=== PATIENT | female | born 1990 ===

== ENCOUNTER 2020-03-24 09:52 | Outpatient (REF) | payer OTHER, SELFPAY | END 2020-03-24 09:53 | disposition home or self-care (01) | LOC: HO.LAB 09:52 | PROVIDERS: Visit Provider Internal Medicine | DX: Z20.828 Contact with and (suspected) exposure to other viral communicable diseases (principal) | CPT/HCPCS: C9803; U0003 ==

== ENCOUNTER 2020-04-24 15:01 | Outpatient (REF) | payer OTHER, SELFPAY ==
[2020-04-25 11:57] LABS: BV Int Neg Control Negative (Negative); BV Int Pos Control Positive (Positive)
[2020-04-26 19:22] LABS: C. trachomatis RNA TMA NOT DETECTED (NOT DETECTED); N. gonorrhoeae RNA TMA NOT DETECTED (NOT DETECTED)
== END 2020-04-24 15:02 | disposition home or self-care (01) ==
LOC: HO.LAB 15:01
PROVIDERS: PCP Internal Medicine; Visit Provider Advanced Practice Midwife
DX: Z01.419 Encounter for gynecological examination (general) (routine) without abnormal findings (principal); L30.9 Dermatitis, unspecified; Z20.2 Contact with and (suspected) exposure to infections with a predominantly sexual mode of transmission
CPT/HCPCS: 87210; 87480; 87491; 87510; 87591; 87660; 88142

== ENCOUNTER 2020-07-19 13:22 | Outpatient (REF) | payer OTHER, SELFPAY ==
[2020-07-19 15:35] LABS: SARS COV2 PCR INHOUSE NEGATIVE (Negative)
== END 2020-07-19 13:23 | disposition home or self-care (01) ==
LOC: HO.LAB 13:22
PROVIDERS: Visit Provider Internal Medicine
DX: Z20.822 Contact with and (suspected) exposure to COVID-19 (principal)
CPT/HCPCS: C9803; U0003

== ENCOUNTER 2020-11-20 13:48 | Outpatient (REF) | payer OTHER, SELFPAY ==
--- NOTE | ~2020-11-20 | XR_ITS ---
EXAMINATION: XR SACRUM AND COCCYX CLINICAL INFORMATION: M53.3 - Sacrococcygeal disorders, not elsewhere classified COMPARISON: CT abdomen and pelvis 02/04/2018 TECHNIQUE: The sacrum and coccyx are imaged in 3 views, 2 frontal and a lateral. FINDINGS: The sacrum and coccyx are unremarkable. There is no fracture or destructive process. No visible presacral tibial soft tissue swelling. The SI joints show no erosive changes or subchondral sclerosis or ankylosis. There is prominent osteitis pubis also noted on the CT pelvis from 2018. XR/XR sacrum coccyx min 2V IMPRESSION: 1. Unremarkable sacrum and coccyx. 2. 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
== END 2020-11-20 13:49 | disposition home or self-care (01) ==
LOC: HO.HMGCX 13:48
PROVIDERS: PCP Internal Medicine; Visit Provider Hospitalist
DX: M53.3 Sacrococcygeal disorders, not elsewhere classified (principal)
CPT/HCPCS: 72220

== ENCOUNTER 2021-06-20 15:00 | Outpatient (REF) | payer OTHER, SELFPAY ==
[2021-06-21 04:54] LABS: CT PCR NOT DETECTED (Not Detect.); NG PCR NOT DETECTED (Not Detect.)
[2021-06-21 13:36] LABS: BV Int Neg Control Negative (Negative); BV Int Pos Control Positive (Positive)
== END 2021-06-20 15:01 | disposition home or self-care (01) ==
LOC: HO.LAB 15:00
PROVIDERS: Visit Provider Advanced Practice Midwife
DX: Z01.411 Encounter for gynecological examination (general) (routine) with abnormal findings (principal); A60.00 Herpesviral infection of urogenital system, unspecified; Z20.2 Contact with and (suspected) exposure to infections with a predominantly sexual mode of transmission; N89.8 Other specified noninflammatory disorders of vagina
CPT/HCPCS: 87071; 87077; 87186; 87205; 87255; 87480; 87491; 87510; 87591; 87660

== ENCOUNTER 2021-06-21 14:54 | Outpatient (REF) | payer OTHER, SELFPAY ==
[2021-06-21 15:08] LABS: MANUAL DIFF FLAG NO
[2021-06-21 15:38] LABS: Basophils Percent Auto 0.4 % (0-2); Eosinophils Absolute Auto 0.2 X10*3/uL (0.0-0.4); Eosinophils Percent Auto 1.8 % (0-4); Hematocrit 37.5 % (37.0-47.0); Hemoglobin 12.8 g/dl (12.0-16.0); Imm Gran Abs Auto 0.02 X10*3/uL (0.00-0.03); Imm Gran Pct Auto 0.2 % (0.0-0.4); Lymphocytes Absolute Auto 2.9 X10*3/uL (1.2-4.9); Lymphocytes Percent Auto 34.9 % (20-40); Mean Corpuscular HGB Conc 34.1 g/dl (31.0-35.0); Mean Corpuscular Hemoglobin 28.5 pg (27.0-33.0); Mean Corpuscular Volume 83.5 fL (80.0-98.0); Mean Platelet Volume 10.1 fL (9.4-12.3); Monocytes Absolute Auto 0.5 X10*3/uL (0.1-1.2); Monocytes Percent Auto 6.2 % (2-11); Neutrophils Absolute Auto 4.6 x10*3/uL (2.0-8.3); Neutrophils Percent Auto 56.5 % (45-73); Platelet Count 377 X10*3/uL (160-400); Red Blood Count 4.49 X10*6/uL (4.20-5.50); Red Cell Distribution Width 14.2 % (11.0-16.0); White Blood Count 8.2 X10*3/uL (4.8-10.8)
[2021-06-21 16:30] LABS: TSH reflex Free T4 0.99 uIU/mL (0.32-4.0)
[2021-06-22 07:46] LABS: ~HepC Num1 0.09 S/CO (0.00-0.79); ~Hepatitis C Antibody Nonreactive (Nonreactive)
[2021-06-22 07:53] LABS: HBsAGNum1 0.22 S/CO (0.00-0.99); HIV AB/AG Nonreactive (Nonreactive); HIV Num 1 0.06 S/CO (0.00-0.99); Hepatitis B Surface Antigen Negative (Negative)
[2021-06-22 08:43] LABS: Syphilis Screen Nonreactive (Nonreactive)
== END 2021-06-21 14:55 | disposition home or self-care (01) ==
LOC: HO.LAB 14:54
PROVIDERS: PCP Internal Medicine; Visit Provider Advanced Practice Midwife
DX: E66.9 Obesity, unspecified (principal); A60.00 Herpesviral infection of urogenital system, unspecified; N89.8 Other specified noninflammatory disorders of vagina
CPT/HCPCS: 36415; 84443; 85025; 86780; 86803; 87340; 87389

== ENCOUNTER → 2021-07-04 14:28 | Outpatient (BNVA) | payer OTHER, SELFPAY | PROVIDERS: PCP Internal Medicine; Visit Provider Advanced Practice Midwife | DX: A60.00 Herpesviral infection of urogenital system, unspecified (principal) | CPT/HCPCS: 99212 ==

== ENCOUNTER 2023-08-18 16:34 | Outpatient (AMB) | payer OTHER, SELFPAY ==
[2023-08-18 16:36] VITALS: BP 120/80; BMI 37.6
--- NOTE | 2023-08-18 16:36 | A.OFFPC_ITS ---
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 Operator Required: No Accompanied by: Child Allergies costello Allergy (Severe, Verified 08/18/23 16:49) SWELLING amoxicillin [AMOXICILLIN] Allergy (Intermediate, Verified 08/18/23 16:49) STOMACH UPSET cephalexin Allergy (Unknown, Verified 08/18/23 16:49) vomiting cefprozil [From CEFZIL] Adverse Reaction (Intermediate, Verified 08/18/23 16:49) VOMITING Medication List - Last Reconciled 08/18/23 by Carmen Odonnell MD No Known Home Meds Tobacco use date assessed: 08/18/23 Dental Screening Dental Screen Date: 08/18/23 Did you have a dental visit in the last 12 months?: No Did you have a dental problem in the last 6 months where you did not have access to dental care?: No Was dental information given to patient?: Patient has dentist HPI HPI Comments History of Present Illness Details This is a 32-year-old female that comes for her physical exam. She denies any chest pain or shortness of breath. Last Pap smear was 2020 and will be referred to OBGYN for this matter. No change in bowel or bladder habits. 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 [facility] Medical History (Updated 08/13/21 @ 17:39 by Carmen Odonnell MD) Chest pain Physical exam Obese Normal Pap smear Surgical History S/P tonsillectomy Tubal ligation status Family History (Updated 08/18/23 @ 16:54 by Carmen Odonnell MD) Maternal Grandmother HTN (hypertension), malignant Diabetes Hyperlipidemia type II Father HTN (hypertension) Mother Bipolar disorder Social History Housing: Apartment Alcohol intake: current Alcohol intake frequency: holidays/special occasions only Alcohol type: wine Patient Tobacco Use Status: Never used Tobacco e-Cigarette/Vaping Use: Never Used Second Hand Smoke Exposure: No service: No Current occupational status: employed Current occupational exposures/hazards: No Gender identity: Female Cognitive needs: No Hearing needs: No Vision needs: No Female Reproductive History Menstrual Age of Menarche: 10 Questionnaire PHQ-9 Over the last 2 weeks, how often have you been bothered by any of the following problems? 1. Little interest or pleasure in doing things: not at all 2. Feeling down, depressed, or hopeless: not at all 3. Trouble falling or staying asleep, or sleeping too much: not at all 4. Feeling tired or having little energy: not at all 5. Poor appetite or overeating: not at all 6. Feeling bad about yourself - or that you are a failure or have let yourself or your family down: not at all 7. Trouble concentrating on things, such as reading the newspaper or watching television: not at all 8. Moving or speaking so slowly that other people could have noticed. Or the opposite - being so fidgety or restless that you have been moving around a lot more than usual: not at all 9. Thoughts that you would be better off or of hurting yourself in some way: not at all Total score: 0 Depression Screening Interpretation: Negative Depression Screening Done: Yes 19533 - PHQ-9 Billing: Yes Source: Developed by Drs. Edwin Augustin, Ewelina Florez, Caio Issa and colleagues, with an educational ross from [employer]. Thrive Questionnaire Date Thrive assessed: 08/18/23 I am a: Patient What is your living situation today?: I have a steady place to live Within the past 12 months, did the food you bought not last and you didn't have the money to get more?: Never true Within the past 12 months, did you worry whether your food would run out before you got money to buy more?: Never true Do you have trouble paying for medicines?: No Do you have trouble getting transportation to medical appointments?: No Do you have trouble paying your heating and electricity bill?: No Do you have trouble taking care of your child, family member or friend?: No Do you have trouble with day-to-day activities such as bathing, preparing meals, shopping, managing finances, etc.?: No Are you currently unemployed and looking for a job?: No Are you interested in more education?: No Please select the resources that you would like help with: None Currently or been in a relationship where the following occur: no concerns reported THRIVE Score: 0 AUDIT C Alcohol Use Questionnaire (AUDIT-C) 1. How often do you have a drink containing alcohol?: Monthly or less 2. How many drinks containing alcohol do you have on a typical day when you are drinking?: 1 or 2 3. How often do you have six or more drinks on one occasion?: Never Total Score: 1 Score Reviewed/Action Taken: No SRIDHAR-7 AMB Questionnaire SRIDHAR-7 Date SRIDHAR - 7 assessed: 08/18/23 Feeling nervous, anxious, or on edge: 0 = Not at all Not being able to stop or control worryin = Not at all Worrying too much about different things: 0 = Not at all Trouble relaxin = Not at all Being so restless that it is hard to sit still: 0 = Not at all Becoming easily annoyed or irritable: 0 = Not at all Feeling afraid as if something awful might happen: 0 = Not at all Total SRIDHAR-7 score (0-4 normal; 5-9 mild; 10-14 moderate; 15-21 severe): 0 Source: Developed by Drs. Edwin Augustin, Ewelina Florez, Caio Issa and colleagues, with an educational ross from [employer]. SRIDHAR-7 Assessment Billing SRIDHAR-7 Assessment Tool: SRIDHAR-7 Assessment 56964 Review of Systems Const All systems reviewed & are unremarkable except as noted in HPI and below Eyes Reports no additional complaints, Denies change in vision and Denies other visual disturbances Card Denies chest pain at rest, Denies chest pain with activity, Denies edema, Denies irregular heart rhythm, Denies claudication, Denies dyspnea, Denies dyspnea on exertion, Denies orthopnea, Denies paroxysmal nocturnal dyspnea and Denies slow heart rate Resp Denies cough, Denies dyspnea and Denies dyspnea on exertion GI Denies abdominal pain, Denies change in bowel habits, Denies excessive flatus, Denies nausea and Denies vomiting Denies urinary incontinence, Denies urinary hesitancy and Denies urinary urgency Musc Denies atrophy, Denies deformity and Denies limited range of motion Physical exam (Primary Care) Vital Signs: Last Vital Signs BP 120/80 08/18/23 16:36 BMI result Body Mass Index 37.6 BMI Assessment/Plan discussion: High BMI High, discussed plan: lifestyle, weight reduction, dietary and physical activity Tobacco/Smoking Status: Tobacco use Status Tobacco use date assessed 08/18/23 08/18/23 16:40 Patient Tobacco Use Status Never used Tobacco 08/18/23 16:40 Tobacco use type 08/15/22 17:35 e-Cigarette/Vaping Use Never Used 08/18/23 16:40 PHQ-9: PHQ-9 Score PHQ-9: Total score 0 08/18/23 16:40 Depression Screening Interpretation: Negative Thrive Assessment: Date of Thrive Assessment Date Thrive assessed 08/18/23 08/18/23 16:40 Currently or been in a relationship where the following occur: no concerns reported Const Orientation/consciousness: patient oriented x3 HENMT Head: Yes normal to inspection, Yes normocephalic and Yes atraumatic Ears: external ears normal Eyes General: appearance normal, both eyes and all related structures Eyelids: Yes eyelids normal Conjunctivae: conjunctivae normal Neck Neck: Yes normal visual inspection and Yes supple Resp Effort & Inspection: normal respiratory effort Auscultation: clear to auscultation bilaterally Cardio Jugular venous distension: no JVD Rate: regular rate Rhythm: regular rhythm Heart sounds: S1 normal heart sound present and S2 normal heart sound present GI Inspection: Yes normal to inspection Palpation (GI): Soft to palpation and nontender Auscultation: normal bowel sounds Skin General skin exam: no rashes or lesions noted Neuro General: patient oriented x3 and no focal motor deficits Extrem General: Yes full ROM Psych Appearance: grossly normal Assessment and Plan Assessment & Plan (1) Physical exam: Code(s): Z00.00 - Encounter for general adult medical examination without abnormal findings Plan: Repeat in a year. Orders: Orders Comprehensive Alvo. Panel Fast Today Z00.00 - Encounter for general adult medical examination without abnormal findings Lipid Panel Today Z00.00 - Encounter for general adult medical examination without abnormal findings Coding Level of Care Code Est Pt Prev Care 18-39y(35790) Diagnoses Physical exam Z00.00 Additional Codes SRIDHAR-7 Assessment Billing - SRIDHAR-7 Assessment Tool: SRIDHAR-7 Assessment 99079 ([id number]) Time Spent (min) 30
== END 2023-08-18 17:01 | disposition home or self-care (01) ==
PROVIDERS: Visit Provider Internal Medicine
DX: Z00.00 Encounter for general adult medical examination without abnormal findings (principal); E66.9 Obesity, unspecified; Z68.37 Body mass index [BMI] 37.0-37.9, adult
CPT/HCPCS: 99395

== ENCOUNTER 2023-09-04 09:39 | Outpatient (REF) | payer OTHER, SELFPAY ==
[2023-09-05 09:34] LABS: Bacterial Vaginosis PCR POSITIVE (Negative); Candida Group PCR NOT DETECTED (Not Detect); Candida glab krusei PCR NOT DETECTED (Not Detect); Trichomonas vaginalis PCR NOT DETECTED (Not Detect)
[2023-09-05 09:47] LABS: CT PCR NOT DETECTED (Not Detect.); NG PCR NOT DETECTED (Not Detect.)
[2023-09-12 20:44] LABS: HPV 16 RNA NOT DETECTED (NOT DETECTED); HPV mRNA E6/E7 rflx Detected (Not Detected)
== END 2023-09-04 09:40 | disposition home or self-care (01) ==
LOC: HO.LAB 09:39
PROVIDERS: PCP Internal Medicine; Visit Provider Advanced Practice Midwife
DX: Z01.419 Encounter for gynecological examination (general) (routine) without abnormal findings (principal); N92.0 Excessive and frequent menstruation with regular cycle
CPT/HCPCS: 0352U; 0353U; 87624; 87625; 88142; 99395

== ENCOUNTER 2023-09-04 09:39 | Outpatient (AMB) | payer OTHER, SELFPAY ==
--- NOTE | 2023-09-04 09:53 | A.OFFVIS_ITS ---
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: No Information Interpreted: clinical only Framing Specialist: Framing Specialist Present Allergies costello Allergy (Severe, Verified 09/04/23 09:54) SWELLING amoxicillin [AMOXICILLIN] Allergy (Intermediate, Verified 09/04/23 09:54) STOMACH UPSET cephalexin Allergy (Unknown, Verified 09/04/23 09:54) vomiting cefprozil [From CEFZIL] Adverse Reaction (Intermediate, Verified 09/04/23 09:54) VOMITING Medication List - Last Reconciled 09/04/23 by Homa Mcgovern CNM omeprazole 20 mg PO DAILY Is last menstrual period known: Yes Last menstrual period: 08/09/23 Do you need a note to return to daycare/school/sports/work: No HPI HPI 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 She has not having any other symptoms she says is possible she is gained weight she says her weight is always up and down. 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 She has not had any outbreaks in the last year of her piece she does not need anymore medication for she has no particular worries about STDs but is open to testing with Pap smear. She had a ParaGard IUD in the past and got with the and then she a Mirena after that and he did how she felt on it with the hormones and then she had her tubes tied. She would never want a Mirena again. [facility] Medical History Chest pain Physical exam Obese Normal Pap smear Surgical History S/P tonsillectomy Tubal ligation status Family History Maternal Grandmother HTN (hypertension), malignant Diabetes Hyperlipidemia type II Father HTN (hypertension) Mother Bipolar disorder Social History (Reviewed 09/04/23 @ 09:55 by Guy Nolasco [facility] Housing: Apartment Alcohol intake: current Alcohol intake frequency: holidays/special occasions only Alcohol type: wine Patient Tobacco Use Status: Never used Tobacco e-Cigarette/Vaping Use: Never Used Second Hand Smoke Exposure: No service: No Current occupational status: employed Current occupational exposures/hazards: No Gender identity: Female Cognitive needs: No Hearing needs: No Vision needs: No Female Reproductive History Menstrual Age of Menarche: 10 Duration of menses: 3-5 days Date of last menstrual period: 08/09/23 control method: permanent sterilization Total pregnancies: 3 Full term: 3 Date of last pap smear: 04/26/20 (negative,previous pap,2017 wnl) History of abnormal pap smear: No Physical Exam Vital Signs: Last Vital Signs BP 118/76 09/04/23 09:54 BMI result Body Mass Index 37.8 Const General: healthy appearing, comfortable, no acute distress, well developed and alert Nutritional Appearance: average body habitus Orientation/consciousness: patient oriented x3 Limitations: no limitations HEENT Head: Yes normocephalic Neck Other: Very subtle thickness at sides of neck probably adipose no goiter palpable. Neck: Yes normal visual inspection Thyroid: Thyroid normal Chest Chest palpation & inspection: normal inspection of the chest Breast/axilla inspection: normal inspection of the breasts and normal inspection of the axillae Breast/axilla palpation: normal palpation of the breasts and normal palpation of the axillae Resp Effort & Inspection: normal respiratory effort GI Inspection: Yes normal to inspection, No Abdominal wall edema and No distended Palpation (GI): Soft to palpation and nontender Other: External exam within normal limits no lesions at all vagina pink and moist cervix pink nulliparous moist mobile nontender re-treated from view during speculum exam but Pap smear was able to be obtained tiny amount bloody mucus at os consistent with pending start of menses. Uterus does not feel enlarged midposition mobile nontender good tone with Kegel. General: Yes bladder normal to palpation External Female Exam: normal external appearance and normal appearance of the urethra Speculum Exam - Vagina: normal appearance of the vagina, normal palpation and normal vaginal discharge Speculum Exam - Cervix: normal appearance of the cervix, normal palpation and nontender Bimanual exam- vagina & uterus: normal bimanual exam, normal palpation, uterine size normal, bladder normal to palpation, consistency normal, normal palpation, uterine mobility normal, uterine shape normal, No Cervical tenderness present, non-tender and no cervical motion tenderness Bimanual Exam- Adnexa, other: normal adnexae, no masses, normal and No adnexal tenderness Neuro General: patient oriented x3 Results Reviewed Results Reviewed: Name: Radha Dominguez Age/Sex: 29/F Attending: Homa Mcgovern CNM : 1990 Submitted by: Homa Mcgovern CNM Copies to: MR #: [id number] Status: DEP REF Collected: 04/24/20 Location: .LAB Received: 04/26/20 Interpretation Satisfactory for evaluation. No endocervical cells seen. Mild inflammation. Fungal organisms consistent with Archana species. Negative for intraepithelial lesion or malignancy. Clinical Information LMP: 04/04/20 Previous PAP test: 2017, wnl Material Received ThinPrep cervical Electronically Signed By: MARTINA Garnica (ASCP) 05/09/20 8055 The Pap Test is a screening procedure with the inherent possibility of both false negative and false positive results. Results should be interpreted in the context of historic and current clinical findings. Reliability of the Pap Test is enhanced by performing the test on a regular repetitive basis. Patient: Radha Dominguez Age/Sex: 29/F MR#: [id number] Page 1 of 1 Name: Radha Dominguez Age/Sex: 30/F : 1990 Unit#: [id number] Attend Dr: Homa Mcgovern CNM Re06/20/21 Status: DEP REF Location: [facility] Disch: SPEC : [id number] HARDY: 06/20/21-UNK STATUS: COMP REQ : [id number] RECD: 06/20/21-[address]: Homa Mcgovern COMP: 06/23/21-1408 ENTERED: 06/20/21-[address]: Physician,None ORDERED: Herpes Vir Cult Test Result Flag Reference Herpes Vir Cult SEE NOTE A HERPES SIMPLEX VIRUS CULTURE Micro Number: [id number] Test Status: Final Specimen Source: Not given Specimen Quality: Adequate HSV Culture: Isolated THIS TEST WAS PERFORMED AT: [facility] [address] [address] SADE WEINBERG MD Assessment & Plan Assessment & Plan (1) Well woman exam with routine gynecological exam: Code(s): Z01.419 - Encounter for gynecological examination (general) (routine) without abnormal findings Category: Medical (2) Screening for cervical cancer: Code(s): Z12.4 - Encounter for screening for malignant neoplasm of cervix Category: Medical (3) Menorrhagia with regular cycle: Code(s): N92.0 - Excessive and frequent menstruation with regular cycle Category: Medical Plan -----Discussed in this visit the following: healthy balanced diet, regular and consistent exercise, getting recommended health screens, doing the best she can for her particular health concerns, kegel exercises, pap smear screening and followup recommendations, mammography screening and SBE, normal changes in cycles in her life stage--- . Reviewed her heavy cycles reviewed usual treatments that might be considered she did not like how she felt on hormones and especially the IUD discussed the possibility of checking for fibroids or any other cause via an ultrasound. She decided for now we will start with CBC and I am also adding the TSH close her visually her neck appeared thickened though her thyroid itself does not feel enlarged. She is going to be getting her fasting labs for her primary care provider so she can get them all done together. If it turns out that she is anemic she will be offered iron further discussion will take place did tell her about Mirena IUD is often being a recommendation and the surgical interventions like her mother's would need to be discussed with physician Orders: Orders Complete Blood Count no Diff Today N92.0 - Excessive and frequent menstruation with regular cycle, Z01.419 - Encounter for gynecological examination (general) (routine) without abnormal findings, Z12.4 - Encounter for screening for malignant neoplasm of cervix Thyroid Stimulating Hormone Today N92.0 - Excessive and frequent menstruation with regular cycle, Z01.419 - Encounter for gynecological examination (general) (routine) without abnormal findings, Z12.4 - Encounter for screening for malignant neoplasm of cervix Coding Level of Care Code Est Pt Prev Care 18-39y(92224) Diagnoses Well woman exam with routine gynecological exam Z01.419 Screening for cervical cancer Z12.4 Menorrhagia with regular cycle N92.0
[2023-09-04 09:54] VITALS: BP 118/76; BMI 37.8
== END 2023-09-04 10:25 | disposition home or self-care (01) ==
LOC: HO.HWSM 09:39
PROVIDERS: PCP Internal Medicine; Visit Provider Advanced Practice Midwife
DX: Z01.419 Encounter for gynecological examination (general) (routine) without abnormal findings (principal); Z12.4 Encounter for screening for malignant neoplasm of cervix; N92.0 Excessive and frequent menstruation with regular cycle
CPT/HCPCS: 99395

== ENCOUNTER 2023-10-30 15:46 | Outpatient (REF) | payer OTHER, SELFPAY | END 2023-10-30 15:47 | disposition home or self-care (01) | LOC: HO.LNP 15:46 | PROVIDERS: PCP Internal Medicine; Visit Provider Obstetrics & Gynecology | DX: R87.612 Low grade squamous intraepithelial lesion on cytologic smear of cervix (LGSIL) (principal) | CPT/HCPCS: 57454; 81025; 88305 ==

== ENCOUNTER 2023-10-30 15:46 | Outpatient (AMB) | payer OTHER, SELFPAY ==
[2023-10-30 15:49] VITALS: BMI 37.4
--- NOTE | 2023-10-30 15:49 | MHC.OFFVIS ---
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 Operator Required: No Information Interpreted: non-clinical & clinical Occupational Health Professional: Occupational Health Professional Present (Maria A ALLEN) Accompanied by: Self / Same As Patient Allergies costello Allergy (Severe, Verified 10/30/23 15:55) SWELLING amoxicillin [AMOXICILLIN] Allergy (Intermediate, Verified 10/30/23 15:55) STOMACH UPSET cephalexin Allergy (Unknown, Verified 10/30/23 15:55) vomiting cefprozil [From CEFZIL] Adverse Reaction (Intermediate, Verified 10/30/23 15:55) VOMITING Is last menstrual period known: Yes Last menstrual period: 10/09/23 HPI Comments Details: Here for colposcopy for Pap smear showing LGSIL/HPV E6 E7 positive, HPV 16/18/45 negative PFSH Medical History Chest pain Physical exam Obese Normal Pap smear Surgical History S/P tonsillectomy Tubal ligation status Family History Maternal Grandmother HTN (hypertension), malignant Diabetes Hyperlipidemia type II Father HTN (hypertension) Mother Bipolar disorder Social History Housing: Apartment Alcohol intake: current Alcohol intake frequency: holidays/special occasions only Alcohol type: wine Patient Tobacco Use Status: Never used Tobacco e-Cigarette/Vaping Use: Never Used Second Hand Smoke Exposure: No service: No Current occupational status: employed Current occupational exposures/hazards: No Gender identity: Female Cognitive needs: No Hearing needs: No Vision needs: No Female Reproductive History Menstrual Age of Menarche: 10 Date of last menstrual period: 10/09/23 control method: permanent sterilization Review of Systems Const All systems reviewed & are unremarkable except as noted in HPI and below Reports as per HPI and Reports no additional complaints GI Reports no additional complaints Reports no additional complaints Physical Exam Vital Signs: BMI result Body Mass Index 37.4 Office Procedures Colposcopy Colposcopy: Pre-Procedure Counseling: Before beginning the procedure, I conducted comprehensive counseling with the patient. We thoroughly discussed the procedure itself, including its details, alternatives, and all associated risks. This included but not limited to the following complications such as bleeding, infection, and injury to the vagina, bladder, and vessels, as well as the potential need for transfusion with all its associated risks. Subsequently, the patient sign the consent. Pap smear result: LSIL/HPV E6/E7 positive, HPV 16/18/45 negative. Procedure: During the procedure, the following steps were performed: A speculum was inserted, and acetic acid was applied. Colposcopy was conducted, allowing visualization of the transformation zone. Acetowhite lesions were identified at the 5+7+11+1+3 o'clock position. Cervical biopsies were obtained from the 5+7+11+1 o'clock position, followed by an endocervical curettage (ECC). Vaginoscopy of the upper vagina revealed no evidence of aceto-white lesions. Hemostasis was achieved using Monsel solution, and the patient tolerated the procedure well. Post-Procedure Instructions: The patient was advised to promptly contact the office or the after hours answering service or go to the emergency room if experiencing a temperature exceeding 100.4?F, abdominal pain, nausea/vomiting, or bleeding. Additionally, the patient was instructed to abstain from vaginal intercourse and bathtub use. The patient confirmed understanding of these instructions. Discharge Instructions: The patient was instructed to schedule a follow-up appointment in 2 weeks for further evaluation and management. Please note that this note was generated using a voice recognition program, and errors may have occurred during environmental services coordinator. 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 the false positive/negative rate of a Pap smear as a screening test in detecting cervical cancer and the indication for a diagnostic test -colposcopy, biopsy, endocervical curettage. The patient verbalized understanding and agreed with the plan, all questions answered. Colposcopy/biopsy/ECC done, see procedure note Orders: Orders AMB HCG Urine Test Today Z32.02 - Encounter for test, result negative AMB Colposcopy Today R87.612 - Low grade squamous intraepithelial lesion on cytologic smear of cervix (LGSIL) Coding Level of Care Code Procedure Only Diagnoses LGSIL on Pap smear of cervix R87.612 CPT Codes Colposcopy - CPT: 39980-Gnltdqvnw of cervix including upper vagina with biopsy and ECC ([id number])
== END 2023-10-30 16:14 | disposition home or self-care (01) ==
LOC: HO.HWS 15:46
PROVIDERS: PCP Internal Medicine; Visit Provider Obstetrics & Gynecology
DX: R87.612 Low grade squamous intraepithelial lesion on cytologic smear of cervix (LGSIL) (principal); Z32.02 Encounter for pregnancy test, result negative
CPT/HCPCS: 57454

== ENCOUNTER 2023-11-13 09:43 | Outpatient (AMB) | payer OTHER, SELFPAY ==
--- NOTE | 2023-11-13 09:45 | MHC.OFFVIS ---
Vital Signs 11/13/23 09:46 Height 5 ft 5 in Weight 224 lb 13.944 oz BMI 37.4 Intake Visit Reasons: colpo results Clinical Documentation Specialist Required: No Information Interpreted: non-clinical & clinical Accompanied by: Self / Same As Patient Allergies costello Allergy (Severe, Verified 11/13/23 09:46) SWELLING amoxicillin [AMOXICILLIN] Allergy (Intermediate, Verified 11/13/23 09:46) STOMACH UPSET cephalexin Allergy (Unknown, Verified 11/13/23 09:46) vomiting cefprozil [From CEFZIL] Adverse Reaction (Intermediate, Verified 11/13/23 09:46) VOMITING Is last menstrual period known: Yes Last menstrual period: 11/10/23 HPI Comments Details: Presenting post colpo for follow-up. The patient is doing well with no complaints. The pathology showed the following: A. Endocervix, curettage: Endocervical glandular mucosa and rare atypical squamous epithelial cells. B. Cervix, 1:00, biopsy: Low-grade squamous intraepithelial lesion (mild dysplasia, EDGAR 1); endocervical glandular mucosa present. C. Cervix, 3:00, biopsy: Squamous and endocervical glandular mucosa with inflammation and reactive changes; negative for dysplasia. D. Cervix, 5:00, biopsy: Squamous mucosa; negative for dysplasia; no endocervical glandular mucosa present. E. Cervix, 7:00, biopsy: Squamous mucosa; negative for dysplasia; no endocervical glandular mucosa present. F. Cervix, 11:00, biopsy: Low-grade squamous intraepithelial lesion (mild dysplasia, EDGAR 1); endocervical glandular mucosa present [facility] Medical History Chest pain Physical exam Obese Normal Pap smear Surgical History S/P tonsillectomy Tubal ligation status Family History Maternal Grandmother HTN (hypertension), malignant Diabetes Hyperlipidemia type II Father HTN (hypertension) Mother Bipolar disorder Social History Housing: Apartment Alcohol intake: current Alcohol intake frequency: holidays/special occasions only Alcohol type: wine Patient Tobacco Use Status: Never used Tobacco e-Cigarette/Vaping Use: Never Used Second Hand Smoke Exposure: No service: No Current occupational status: employed Current occupational exposures/hazards: No Gender identity: Female Cognitive needs: No Hearing needs: No Vision needs: No Female Reproductive History Menstrual Age of Menarche: 10 Date of last menstrual period: 11/10/23 Review of Systems Const All systems reviewed & are unremarkable except as noted in HPI and below Reports as per HPI and Reports no additional complaints GI Reports no additional complaints Reports no additional complaints Physical Exam Vital Signs: BMI result Body Mass Index 37.4 Assessment & Plan Assessment & Plan (1) Dysplasia of cervix, low grade (EDGAR 1): Code(s): N87.0 - Mild cervical dysplasia Category: Medical Plan: Discussed with the patient the pathology results of the colposcopy biopsies & endocervical curettage ( mild dysplasia-EDGAR 1). Discussed with the patient the sensitivity specificity, positive and negative predictive value in detecting cervical cancer in addition discussed the regression, persistence and progression rates. Recommended co-testing in 12 months, if cytology and or HPV are abnormal will proceed was colposcopy biopsy and endocervical curettage, if lesions gets worse or stays persistent for 2 years will proceed with loop electric excision procedure. Instructions given to the patient to schedule a co test appointment in 1 year. All questions answered the patient verbalized understanding. Coding Level of Care Code Est Pt Level 3 (27014) Diagnoses Dysplasia of cervix, low grade (EDGAR 1) N87.0
[2023-11-13 09:46] VITALS: BMI 37.4
== END 2023-11-13 10:00 | disposition home or self-care (01) ==
LOC: HO.HWS 09:43
PROVIDERS: PCP Internal Medicine; Visit Provider Obstetrics & Gynecology
DX: N87.0 Mild cervical dysplasia (principal)
CPT/HCPCS: 99213

== ENCOUNTER → 2023-11-13 09:43 | Outpatient (BNVA) | payer OTHER, SELFPAY | PROVIDERS: PCP Internal Medicine; Visit Provider Obstetrics & Gynecology | DX: N87.0 Mild cervical dysplasia (principal); Z98.51 Tubal ligation status | CPT/HCPCS: 99212 ==